=== PATIENT | male | born 1985 | race Caucasian/White ===

== ENCOUNTER 2020-05-23 12:41 | Emergency (ER) | payer BC ==
[~2020-05-23] VITALS: Ht 182.9 cm; Wt 122.5 kg
[2020-05-23] MEDS ORDERED: PREDNISONE 20 M20 M1 PO (13:37)
[2020-05-23] MEDS ORDERED: PEPCID20 MG PO (13:37)
[2020-05-23 14:02] VITALS: BP 113/62
== END 2020-05-23 14:03 | disposition home or self-care (01) ==
LOC: M.ERS 12:41
DX: T65.91XA Toxic effect of unspecified substance, accidental (unintentional), initial encounter (principal); L50.9 Urticaria, unspecified; J45.909 Unspecified asthma, uncomplicated; Z90.89 Acquired absence of other organs; Z88.0 Allergy status to penicillin; Z88.8 Allergy status to other drugs, medicaments and biological substances; Y92.89 Other specified places as the place of occurrence of the external cause